=== PATIENT | female | born 1965 | race Caucasian/White ===

== ENCOUNTER 2016-08-13 21:00 | Inpatient (IN) | payer SELFPAY ==
[~2016-08-13] VITALS: Ht 162.6 cm; Wt 55.3 kg
[2016-08-14] MEDS ORDERED: ONDANSETRON HCL 4MG/2ML VIAL IV STA (01:49)
[2016-08-14] MEDS ORDERED: MORPHINE SULFATE 4 MG/ML CPJ (NOT FOR IM USE) IV STA (01:49)
[2016-08-14] MEDS ORDERED: NITROGLYCERIN OINT 1GM/INCH UDPKT TD ONE (02:00)
[2016-08-14 02:10] LABS: BASOPHILS % 0.7 % (0.0-2.0); HEMATOCRIT. 39.2 % (36.0-48.0); HEMOGLOBIN. 13.2 g/dL (12.0-16.0); LYMPHOCYTES % 10.6 % (20.0-50.0); MEAN CORPUSCULAR HEMOGLOBIN 30.8 pg (28.0-32.0); MEAN CORPUSCULAR HGB CONC 33.8 g/dL (31.0-37.0); MONOCYTES % 8.4 % (2.0-8.0); NEUTROPHILS % 80.3 % (40.0-76.0); PLATELET 262 x1000/uL (130-400); RED CELL DISTRIBUTION WIDTH 13.7 % (11.6-14.6); WHITE BLOOD COUNT 12.2 x1000/uL (4.5-11.0)
[2016-08-14 02:25] LABS: ALANINE AMINOTRANSFERASE 15 IU/L (13-61); ALBUMIN 3.7 g/dL (3.4-5.0); ANION GAP 13; CALCIUM 8.5 mg/dL (8.5-10.1); CARBON DIOXIDE 25 mEq/L (21-32); CHLORIDE 104 mEq/L (98-107); INDEX HEMOLYSI 1 (1-3); INDEX ICTERIC 1 (1-4); INDEX LIPEMIC 1 (1-3); TROPONIN I < 0.02 ng/mL (0.00-0.04); UREA NITROGEN BLOOD 14 mg/dL (7-21); eGFR 53 mL/min (>60)
[2016-08-14] MEDS ORDERED: ASPIRIN 325MG TABLET PO ONE (02:45)
[2016-08-14 06:20] VITALS: BP 113/84
[2016-08-14 08:02] VITALS: BP 114/81
[2016-08-14] MEDS ORDERED: LOPRESSOR (09:05)
[2016-08-14] MEDS ORDERED: NORVASC (09:05)
[2016-08-14] MEDS: MORPHINE SULFATE 2 MG/ML CPJ (NOT FOR IM USE) IV PRN (09:49)
[2016-08-14 10:00] VITALS: BP 114/81
[2016-08-14] MEDS ORDERED: PNEUMOCOCCAL 23-VAL P-SAC VAC 0.5 ML IM ONE (12:00)
[2016-08-14 12:26] VITALS: BP 126/82
[2016-08-14 12:32] LABS: HDL CHOLESTEROL 60 mg/dL (40-59); INDEX HEMOLYSI 1 (1-3); INDEX ICTERIC 1 (1-4); INDEX LIPEMIC 1 (1-3); LDL CHOLESTEROL 129 mg/dL (5-100); TRIGLYCERIDE 78 mg/dL (0-150); TROPONIN I < 0.02 ng/mL (0.00-0.04)
[2016-08-14 13:04] LABS: CLARITY URINE CLOUDY (CLEAR); COLOR URINE YELLOW (YELLOW); GLUCOSE URINE NEGATIVE (NEGATIVE); KETONES URINE NEGATIVE (NEGATIVE); LEUKOCYTE ESTERASE URINE 1+ (NEGATIVE); NITRITE URINE NEGATIVE (NEGATIVE); OCCULT BLOOD URINE 3+ (NEGATIVE); PH URINE 5.5 (4.5-8.0); PROTEIN URINE 2+ (NEGATIVE); SPECIFIC GRAVITY URINE 1.021 (1.005-1.030); UROBILINOGEN URINE 0.2 E.U./dL (0.2-1.0)
[2016-08-14 13:15] LABS: UCG SCREEN NEGATIVE
[2016-08-14 13:45] LABS: BACTERIA URINE 4+; SQUAMOUS EPITHELIAL CELL URINE 1+ /lpf (RARE/1+)
[2016-08-14 13:46] LABS: RBC URINE 50-100 /hpf (0-2); WBC URINE 15-25 /hpf (0-2)
[2016-08-14 13:47] LABS: YEAST URINE FEW
[2016-08-14 13:57] LABS: *AMPHETAMINES SCREEN URINE NEGATIVE (NEGATIVE); *BARBITURATES SCREEN URINE NEGATIVE (NEGATIVE); *BENZODIAZEPINES SCREEN URINE NEGATIVE (NEGATIVE); *COCAINE SCREEN URINE NEGATIVE (NEGATIVE); CANNABINOID URINE SCREEN NEGATIVE (NEGATIVE); ECSTASY MDMA SCREEN URINE NEGATIVE (NEGATIVE); METHADONE URINE SCREEN NEGATIVE (NEGATIVE); PHENCYCLIDINE URINE SCREEN NEGATIVE (NEGATIVE)
[2016-08-14 14:01] LABS: OPIATES URINE SCREEN PRESUMTIVE POSITIVE (NEGATIVE)
[2016-08-14 16:00] VITALS: BP 142/100
[2016-08-14] MEDS: ACETAMINOPHEN 325MG TABLET PO PRN ×2 (16:08→22:24)
[2016-08-14] MEDS ORDERED: LEVOFLOXACIN 500MG TABLET PO NR (16:45)
[2016-08-14] MEDS ORDERED: ONDANSETRON HCL 4MG/2ML VIAL IV PRN (17:00)
[2016-08-14] MEDS ORDERED: HYDROCODONE/ACETAMINOPHEN 5/325MG TABLET PO PRN (17:00)
[2016-08-14] MEDS ORDERED: IPRATROPIUM/ALBUTEROL 0.5-3(2.5)MG/3ML NEB INH PRN (17:00)
[2016-08-14] MEDS: SODIUM CHLORIDE 0.9% 1,000 ML IV SCH (18:49)
[2016-08-14 20:00] VITALS: BP_SYST 140; BP_SYST 143; BP_SYST 148; BP_DIAS 80; BP_DIAS 82; BP_DIAS 93
[2016-08-14 21:00] LABS: CLARITY URINE CLOUDY (CLEAR); COLOR URINE YELLOW (YELLOW); GLUCOSE URINE NEGATIVE (NEGATIVE); KETONES URINE NEGATIVE (NEGATIVE); LEUKOCYTE ESTERASE URINE 1+ (NEGATIVE); NITRITE URINE NEGATIVE (NEGATIVE); OCCULT BLOOD URINE 2+ (NEGATIVE); PH URINE 5.5 (4.5-8.0); PROTEIN URINE 1+ (NEGATIVE); SPECIFIC GRAVITY URINE 1.014 (1.005-1.030); UROBILINOGEN URINE 0.2 E.U./dL (0.2-1.0)
[2016-08-14 21:42] LABS: BACTERIA URINE 4+; SQUAMOUS EPITHELIAL CELL URINE FEW /lpf (RARE/1+)
[2016-08-14 21:43] LABS: *AMPHETAMINES SCREEN URINE NEGATIVE (NEGATIVE); *BARBITURATES SCREEN URINE NEGATIVE (NEGATIVE); *BENZODIAZEPINES SCREEN URINE NEGATIVE (NEGATIVE); *COCAINE SCREEN URINE NEGATIVE (NEGATIVE); CANNABINOID URINE SCREEN NEGATIVE (NEGATIVE); ECSTASY MDMA SCREEN URINE NEGATIVE (NEGATIVE); METHADONE URINE SCREEN NEGATIVE (NEGATIVE); PHENCYCLIDINE URINE SCREEN NEGATIVE (NEGATIVE)
[2016-08-14 21:44] LABS: OPIATES URINE SCREEN PRESUMTIVE POSITIVE (NEGATIVE)
[2016-08-14] MEDS: SODIUM CHLORIDE 0.9% INJ 3ML FLUSH IVF SCH (22:20)
[2016-08-15] VITALS (11 sets, daily range): BP systolic 126–210; BP diastolic 80–140
[2016-08-15 00:31] LABS: CREATINE KINASE 66 IU/L (26-192); CREATINE KINASE MB FRACTION < 0.5 ng/mL (0.5-3.6); INDEX HEMOLYSI 1 (1-3); TROPONIN I < 0.02 ng/mL (0.00-0.04)
[2016-08-15 06:22] LABS: INDEX HEMOLYSI 1 (1-3)
[2016-08-15 06:25] LABS: CREATINE KINASE 55 IU/L (26-192); CREATINE KINASE MB FRACTION < 0.5 ng/mL (0.5-3.6); TROPONIN I < 0.02 ng/mL (0.00-0.04)
[2016-08-15] MEDS: SODIUM CHLORIDE 0.9% INJ 3ML FLUSH IVF SCH ×3 (06:32→20:31)
[2016-08-15] MEDS: SODIUM CHLORIDE 0.9% 1,000 ML IV SCH ×2 (06:34→20:29)
[2016-08-15] MEDS ORDERED: REGADENOSON 0.4 MG/5 ML IV ONE ×2 (08:45→13:48)
[2016-08-15] MEDS: AMLODIPINE 10MG TABLET PO SCH (09:00)
[2016-08-15 09:21] LABS: T4 FREE 1.1 ng/dL (0.76-1.46); THYROID STIMULATING HORMONE 1.6 uIU/mL (0.36-3.74)
[2016-08-15] MEDS: MORPHINE SULFATE 2 MG/ML CPJ (NOT FOR IM USE) IV PRN (09:43)
[2016-08-15] MEDS ORDERED: POTASSIUM CHLORIDE 20MEQ TABLET SR PO NR (11:15)
[2016-08-15] MEDS ORDERED: CLONIDINE 0.1MG TABLET PO PRN (11:15)
[2016-08-15] MEDS ORDERED: AMLODIPINE 10MG TABLET PO NR (11:15)
[2016-08-15] MEDS: LEVOFLOXACIN 500MG TABLET PO SCH (15:19)
[2016-08-15 19:46] LABS: BASOPHILS % 0.5 % (0.0-2.0); EOSINOPHILS % 0.2 % (0.0-5.0); HEMATOCRIT. 37.5 % (36.0-48.0); HEMOGLOBIN. 12.5 g/dL (12.0-16.0); LYMPHOCYTES % 11.3 % (20.0-50.0); MEAN CORPUSCULAR HEMOGLOBIN 30.6 pg (28.0-32.0); MEAN CORPUSCULAR HGB CONC 33.4 g/dL (31.0-37.0); MEAN CORPUSCULAR VOLUME 91.9 fL (81.0-99.0); MEAN PLATELET VOLUME 8.8 fl (7.4-10.4); PLATELET 234 x1000/uL (130-400); RED BLOOD CELL COUNT 4.09 mill/uL (4.2-5.4); RED CELL DISTRIBUTION WIDTH 13.8 % (11.6-14.6)
[2016-08-15] MEDS ORDERED: CEFTRIAXONE 1 G PREMIX 50 ML IV SCH (20:00)
[2016-08-15 20:09] LABS: ALANINE AMINOTRANSFERASE 14 IU/L (13-61); ANION GAP 11; CALCIUM 8.2 mg/dL (8.5-10.1); CARBON DIOXIDE 27 mEq/L (21-32); CHLORIDE 108 mEq/L (98-107); INDEX HEMOLYSI 1 (1-3); INDEX ICTERIC 1 (1-4); INDEX LIPEMIC 1 (1-3); UREA NITROGEN BLOOD 13 mg/dL (7-21); eGFR > 60 mL/min (>60)
[2016-08-15] MEDS ORDERED: METOPROLOL TARTRATE 25MG TABLET PO SCH (21:00)
[2016-08-15] MEDS ORDERED: METOPROLOL TARTRATE 25MG TABLET PO NR (21:30)
[2016-08-15] MEDS ORDERED: HYDRALAZINE HCL 25MG TABLET PO NR (21:30)
[2016-08-16 00:15] VITALS: BP 104/68
[2016-08-16 04:00] VITALS: BP 138/62
[2016-08-16] MEDS: SODIUM CHLORIDE 0.9% INJ 3ML FLUSH IVF SCH (05:31)
[2016-08-16 08:00] VITALS: BP 129/88
[2016-08-16] MEDS ORDERED: METOPROLOL TARTRATE 25MG TABLET PO SCH (09:00)
[2016-08-16] MEDS: AMLODIPINE 10MG TABLET PO SCH (09:27)
[2016-08-16 12:00] VITALS: BP 119/76
[2016-08-16] MEDS: LEVOFLOXACIN 500MG TABLET PO SCH (12:19)
== END 2016-08-16 14:40 | disposition home or self-care (01) | DRG 204 ==
LOC: ER 22:55 → 6WST 08-14 04:52
PROVIDERS: ADMIT Family Medicine; ATTEND Family Medicine
DX: R55 Syncope and collapse (principal); N39.0 Urinary tract infection, site not specified; I10 Essential (primary) hypertension; E78.5 Hyperlipidemia, unspecified; R07.89 Other chest pain
CPT/HCPCS: 36415; 71010; 72100; 78452; 78582; 80053; 80061; 80305; 81001; 81025; 82550; 82553; 83036; 83605; 83880; 84439; 84443; 84484; 85025; 85379; 87077; 87086; 87186; 93005; 93017; 93306; 93880; 96374; 96375; 99285; A9500; A9558; J0696; J2270; J2405; J2785; J7030